=== PATIENT | female | born 1950 ===

== ENCOUNTER 2017-08-27 10:30 | Emergency (ER) | payer OTHER ==
[~2017-08-27] VITALS: Ht 160 cm; Wt 67.1 kg
[2017-08-27] MEDS ORDERED: SYNAGIS50 MG/0.5 PO (10:43)
== END 2017-08-27 12:30 | disposition home or self-care (01) ==
LOC: ER 10:30
DX: S83.8X2A Sprain of other specified parts of left knee, initial encounter (principal); X58.XXXA Exposure to other specified factors, initial encounter; Y93.89 Activity, other specified; Y92.89 Other specified places as the place of occurrence of the external cause; Y99.8 Other external cause status